=== PATIENT | male | born 1975 | race Caucasian/White ===

== ENCOUNTER 2021-12-07 08:21 | Outpatient (CLI) | payer BC, SELFPAY ==
[2021-12-07 11:19] LABS: Chloride* 105 mmol/L (96-114); Potassium* 4.2 mmol/L (3.6-5.1); Sodium* 140 mmol/L (135-149)
[2021-12-07 11:22] LABS: Alanine Aminotransferase* 19 U/L (4-50); Blood Urea Nitrogen* 21 mg/dL (5-24); Carbon Dioxide* 26 mmol/L (20-32); Creatinine* 1.1 mg/dL (0.5-1.5); Estimated Glomerular Filt Rate 85 ml/min; Glucose* 104 mg/dL (60-115)
[2021-12-07 11:23] LABS: Calcium* 9.7 mg/dL (8.4-10.6)
== END 2021-12-07 08:22 | disposition home or self-care (01) ==
PROVIDERS: PCP Family Medicine; Visit Provider Family Medicine
DX: R55 Syncope and collapse (principal)
CPT/HCPCS: 80048; 84443; 84460